=== PATIENT | female | born 2000 | race Two or more races ===

== ENCOUNTER 2024-12-30 19:42 | Emergency (ER) | payer OTHER ==
[~2024-12-30] VITALS: Ht 157.5 cm; Wt 87.5 kg
[2024-12-30] MEDS ORDERED: PRENATABS FA T1 EACH (20:55)
[2024-12-31 00:30] LABS: BASO % 0.2 % (0.1-1.2); EOS # 0.08 (0.04-0.54); EOS % 0.8 % (0.7-7.0); LYMPH # 2.97 (1.18-3.74); LYMPH % 28.8 % (19.3-53.1); MEAN PLATELET VOLUME 9.40 fl (9.4-12.4); MONO # 0.69 (0.24-0.82); MONO % 6.7 % (4.7-12.5); NEUT # 6.52 (1.56-6.13); NEUT % 63.3 % (34.0-71.1); RED CELL DISTRIBUTION WIDTH 12.5 % (11.6-14.4)
[2024-12-31 01:06] LABS: ALT/SGPT 28.0 U/L (12-78); AST/SGOT 15.0 U/L (15-37); BILIRUBIN TOTAL 0.35 mg/dL (0.3-1.2); BUN CREA RATIO 15.0 (7.0-25.0); CREATININE SERUM 0.66 mg/dL (0.55-1.02); GFR 108.25; GLOBULINA 4.3 G/DL (2.4-3.5); GLUCOSE FASTING 89.0 mg/dL (65-100); OSMOLALITY SERUM 280.0 MOSM/KG (275-295)
[2024-12-31 01:09] LABS: URINE APPEARANCE Cloudy; URINE BILIRRUBIN Negative (NEGATIVE); URINE BLOOD Small; URINE COLOR Yellow; URINE GLUCOSE Negative (NEGATIVE); URINE LEUKOCYTE Negative; URINE NITRATE Negative; URINE UROBILINOGEN 1.0 E.U./dl
[2024-12-31 01:12] LABS: URINE BACTERIA 917.9 uL (0.0-1933); URINE EPITHELIAL CELLS 21.5 uL (0.0-38.8); URINE RBC 2.4 uL (0.0-20.8); URINE WBC 15.5 uL (0.0-23.2)
[2024-12-31 01:16] LABS: URINE CAST 0.00 uL (0.0-1.40); URINE KETONE 40 (NEGATIVE); URINE PROTEIN 100 (NEGATIVE)
[2024-12-31] MEDS ORDERED: CEFAZOLIN SODIUM 1,000 MG VIAL IM STA (02:32)
[2024-12-31] MEDS ORDERED: CEFAZOLIN SODIUM 1,000 MG VIAL ONE (03:37)
[2024-12-31] MEDS ORDERED: WATER FOR INJ.,BACTERIOSTATIC 30 ML VIAL IJ ONE (03:37)
== END 2024-12-31 03:59 | disposition home or self-care (01) ==
LOC: ER 19:42
PROVIDERS: Preventive Medicine Public Health & General Preventive Medicine
DX: O20.8 Other hemorrhage in early pregnancy (principal); O20.0 Threatened abortion; Z3A.12 12 weeks gestation of pregnancy